=== PATIENT | female | born 1945 | race Caucasian/White ===

== ENCOUNTER 2018-12-22 10:54 | Emergency (ER) | payer OTHER ==
[2018-12-22 11:03] VITALS: BP 136/89; PULSE 72; TEMP 97.8; BMI 34.0
[2018-12-22] MEDS ORDERED: KETOROLAC TROMETHAMINE 30 MG/1 ML VIAL IM ONE (11:38)
--- NOTE | 2018-12-22 11:38 | PDOC ---
History of Present Illness - General Chief Complaint: Pain Stated Complaint: RT LEG PAIN Time Seen by Provider: 12/22/18 11:07 - History of Present Illness Initial Comments: 12/22/18 11:11 CHIEF COMPLAINT: leg pain HISTORY OF PRESENT ILLNESS: 73 yo F with hx of HTN and HLD presents to ED with pain to R leg x 3 months. Patient reports the pain is worse when she walks and states that the pain is a shooting pain that goes down her right hip to right thigh. Daughter states that the patient "is always walking and has to take care of my father who has dementia because they live by themselves since I live in [place], so she is always moving around and lifting things and you know, always always moving." Patient denies any recent fall or other trauma. Patient states she has not taken any medications for her pain. No recent travel or sick contacts. PAST MEDICAL HISTORY: Denies past medical history FAMILY HISTORY: Denies SOCIAL HISTORY: Lives at home with . Denies tobacco, alcohol, illicit drug use. SURGICAL HISTORY: Denies ALLERGIES: aspirin REVIEW OF SYSTEMS General/Constitutional: Denies fever or chills. Denies weakness, weight change. HEENT: Denies change in vision. Denies ear pain or discharge. Denies sore throat. Cardiovascular: Denies chest pain or shortness of breath. Respiratory: Denies cough, wheezing, or hemoptysis. Gastrointestinal: Denies nausea, vomiting, diarrhea or constipation. Denies rectal bleeding. Genitourinary: Denies dysuria, frequency, or change in urination. Musculoskeletal: Right hip and leg pain. Skin and breasts: Denies rash or easy bruising. Neurologic: Denies headache, vertigo, loss of consciousness, or loss of sensation. PHYSICAL EXAM General Appearance: Well-appearing, appropriately dressed. No apparent distress , no intoxication. HEENT: EOMI, PERRLA, normal ENT inspection, normal voice, TMs normal, pharynx normal. No conjunctival pallor. No photophobia, scleral icterus. Neck: Supple. Trachea midline. No tenderness, rigidity, carotid bruit, stridor , lymphadenopathy, or thyromegaly. Respiratory/Chest: Lungs CTAB. No shortness of breath, chest tenderness, respiratory distress, accessory muscle use. No crackles, rales, rhonchi, stridor , wheezing, dullness Cardiovascular: RRR. S1, S2. No JVD, murmur, bradycardia, tachycardia. Vascular Pulses: Dorsalis-Pedis (R): 2+, Dorsalis-Pedis (L): 2+ Gastrointestinal/Abdominal: Normal bowel sounds. Abdomen soft, non-distended. No tenderness or rebound tenderness. No organomegaly, pulsatile mass, guarding , hernia, hepatomegaly, splenomegaly. Lymphatic: No adenopathy, tenderness. Musculoskeletal/Extremities: Uneven gait, R leg limp. +R straight leg test. Normal color to entire thigh and leg, negative for swelling, erythema. No ecchymosis, deformity. FROM of all extremities, normal capillary refill. Pelvis Stable. No CVA tenderness. No tenderness to extremities, pedal edema, swelling, erythema or deformity. Integumentary: Appropriate color, dry, warm. No cyanosis, erythema, jaundice or rash Neurologic: fraud representative II-XII intact. Fully oriented, alert. Appropriate mood/affect. Motor strength 5/5. No appreciable EOM palsy, facial droop or sensory deficit. Past History - Past Medical History Allergies/Adverse Reactions: Allergies Allergy/AdvReac Type Severity Reaction Status Date / Time aspirin Allergy Verified 12/22/18 10:58 Home Medications: Ambulatory Orders Cyclobenzaprine HCl 7.5 mg PO HS #10 tablet 12/22/18 Ibuprofen 400 mg PO Q6H PRN #20 tablet 12/22/18 Lisinopril [Prinivil] 20 mg PO DAILY 12/22/18 COPD: No HTN: Yes Hypercholesterolemia: Yes - Suicide/Smoking/Psychosocial Hx Smoking History: Never smoked *Physical Exam - Vital Signs Last Vital Signs Temp Pulse Resp BP Pulse Ox 97.8 F 72 18 136/89 99 12/22/18 11:00 12/22/18 11:00 12/22/18 11:00 12/22/18 11:00 12/22/18 11:00 Medical Decision Making - Medical Decision Making 12/22/18 11:38 73 yo F with hx of HTN and HLD presents to ED with pain to R leg x 3 months. DDx includes sciatica, muscle strain, arthritis, degenerative joint disease, fracture, sprain. -Toradol IM Advised patient to take medication as prescribed and follow up with ortho within 1 week. Advised patient of signs and symptoms for return to ED. Patient verbalized understanding and agrees to plan. *DC/Admit/Observation/Transfer Diagnosis at time of Disposition: Right leg pain - Discharge Dispostion Disposition: HOME Condition at time of disposition: Good Decision to Admit order: No - Prescriptions Prescriptions: Cyclobenzaprine HCl 7.5 mg PO HS #10 tablet Ibuprofen 400 mg PO Q6H PRN #20 tablet PRN Reason: Pain - Referrals Referrals: Anup Don DO [Staff Physician] - - Patient Instructions Printed Discharge Instructions: DI for Sciatica Additional Instructions: Please take medications as prescribed. As discussed, cyclobenzaprine may cause drowsiness to please take at bed time and do not drink alcohol, drive, or operate machinery while taking that medication. Please follow up with orthopedics within the next week for further evaluation and possible physical therapy to relieve your leg pain. If you develop any new or worsening pain, swelling, redness, warmth, or discoloration to your leg, please return to the ER immediately. - Post Discharge Activity
[2018-12-22] MEDS ORDERED: KETOROLAC TROMETHAMINE 30 MG/1 ML VIAL ONE (11:41)
== END 2018-12-22 12:06 | disposition home or self-care (01) ==
LOC: JERFT 10:54
PROC: 3E0233Z Introduction of Anti-inflammatory into Muscle, Percutaneous Approach (ICD-10-PCS; principal; 2018-12-22)
DX: M54.31 Sciatica, right side (principal); I10 Essential (primary) hypertension
CPT/HCPCS: 96372; 99282-25